=== PATIENT | female | born 1935 | race Caucasian/White ===

== ENCOUNTER → 2024-10-22 10:31 | Outpatient (REF) | payer MEDICARE, SELFPAY | LOC: HWRAD 10:31 | PROVIDERS: ATTENDING PHYSICIAN Family Medicine; FAMILY PHYSICIAN Family Medicine | DX: R60.0 Localized edema (principal) | CPT/HCPCS: 93970 ==

== ENCOUNTER → 2024-12-17 15:02 | Outpatient (REF) | payer MEDICARE, SELFPAY | LOC: HWRCS 15:02 | PROVIDERS: ATTENDING PHYSICIAN Physician Assistant Medical; FAMILY PHYSICIAN Family Medicine | DX: R60.0 Localized edema (principal); I25.10 Atherosclerotic heart disease of native coronary artery without angina pectoris; Z95.5 Presence of coronary angioplasty implant and graft | CPT/HCPCS: 93306 ==

== ENCOUNTER → 2024-12-25 12:29 | Outpatient (REF) | payer OTHER, SELFPAY | LOC: RAD 12:29 | PROVIDERS: ATTENDING PHYSICIAN Nurse Practitioner Family; FAMILY PHYSICIAN Family Medicine | DX: E83.52 Hypercalcemia (principal) | CPT/HCPCS: 76536 ==

== ENCOUNTER → 2025-02-06 12:19 | Outpatient (REF) | payer OTHER, SELFPAY ==
[2025-02-06 12:35] VITALS: BP 161/65; BP_SYST 58
== END ==
LOC: RADI 12:19
PROVIDERS: ATTENDING PHYSICIAN Nurse Practitioner Family; FAMILY PHYSICIAN Family Medicine
DX: E04.1 Nontoxic single thyroid nodule (principal)
CPT/HCPCS: 10005; 88173

== ENCOUNTER 2025-02-11 12:43 | Outpatient (REF) | payer OTHER, SELFPAY | END 2025-02-11 23:59 | disposition home or self-care (01) | LOC: WOUND 12:43 | PROVIDERS: ATTENDING PHYSICIAN Surgery; FAMILY PHYSICIAN Family Medicine | DX: L90.5 Scar conditions and fibrosis of skin (principal); C44.709 Unspecified malignant neoplasm of skin of left lower limb, including hip; I87.2 Venous insufficiency (chronic) (peripheral); I25.10 Atherosclerotic heart disease of native coronary artery without angina pectoris; Z95.5 Presence of coronary angioplasty implant and graft | CPT/HCPCS: 99203 ==

== ENCOUNTER 2025-02-15 11:50 | Emergency (ER) | payer OTHER, SELFPAY ==
[2025-02-15 12:04] VITALS: BP 166/75
--- NOTE | 2025-02-15 14:22 | ED.GENMED ---
History of Present Illness
General
Chief Complaint: Fall
Source: patient and family
Exam Limitations: none
Time Seen by Provider: 02/15/25 13:22
Nursing documentation reviewed up to this point in time: agreed with
History of Present Illness
History of Present Illness:
Patient is an 81-year-old female presents to the ER for evaluation . she fell in the bathroom and hit her left forehead on the tub on Tuesday. No loss of conscious no headache. Family is bringing her today for evaluation. Patient herself has
no complaints. She does have bruising to the left side of her head. She is not on blood thinners. Denies any other injuries. Denies any nausea and vomiting .
Phy Exam
General Physical Exam
General Presentation: no apparent distress
General age: appears stated age
General Skin: warm and dry
General Habitus: normal
General Mental: alert
General Hydration: appears well hydrated
ENT Exam
ENT Exam: EOMI and TM's normal
Eye Exam
Eye Exam: PERRL, EOMI and other (+ Ecchymosis to left lateral orbit no entrapment small Rodrigues bruising to left forehead)
Eye Exam General: PERRL: bilateral and EOM intact: bilateral
Pupil Exam: Bilateral: round and reactive
Neurological Exam
Neurological Exam: alert, oriented x3 and no motor deficits
Bindu Coma Scale
Eye Opening: Spontaneous
Verbal Response: Oriented
Motor Response: Obeys Commands
GCS Total Score: 15
Musculoskeletal Exam
Musculoskeletal Exam: full ROM and other ( + Ecchymosis to left lateral orbit; + small amt of ecchymosis to left forehead)
Skin Exam
Skin Exam: normal color and warm/dry
Psychiatric Exam
Psychiatric Exam: normal mood/affect
Course
Orders/Labs/Results
Orders:
Orders
02/15/25 12:10
CT Head W/o Iv Contrast Urgent
Comment:
Reason For Exam: fall
02/15/25 12:11
Cervical Spine wo Contrast CT [CT Cervical Spine W/o Iv Contr] Urgent
Comment:
Reason For Exam: fall
Vital Signs
Initial and Last Documented VS:
Initial Vital Signs
Temp Pulse Resp BP Pulse Ox
98.2 F 58 16 166/75 99
02/15/25 12:04 02/15/25 12:04 02/15/25 12:04 02/15/25 12:04 02/15/25 12:04
Last Documented Vital Signs
Temp Pulse Resp BP Pulse Ox
98.2 F 64 19 159/99 98
02/15/25 12:04 02/15/25 15:52 02/15/25 15:52 02/15/25 15:52 02/15/25 15:52
MDM/Problems Addressed
Differential Diagnosis Includes:
Not limited to intracranial hemorrhage, head injury contusion
MDM/Problems Addressed:
Patient fell in the bathtub on Tuesday and has bruising to the left side of her head. No loss of conscious. Patient is awake alert no acute distress she is not on blood thinners. CT head and cervical spine negative for acute findings. CT
cervical spine mentions thyroid nodule she is aware of this and has recently had this biopsied and is in the process of her workup. Patient is well-appearing stable for discharge home.
*Radiology
Radiology exam reviewed: radiology read reviewed
*Pulse Oximetry
SaO2: 99
Oxygen Mode of Delivery: Room air
Patient hypoxic: no
*Critical Care Note
Total Time (30-74mins, 75-104mins- exclusive of procedures): Not Applicable
ED Attending Note
-
Portions of this chart may have been created with voice recognition software.� Occasional wrong word or��sound alike� substitutions may have occurred due to the inherent limitations of voice recognition software.
Discharge Plan
Departure
Patient Disposition: Home (Routine Discharge)
Date of Disposition: 02/15/25
Time of Disposition: 16:41
Patient with high blood pressure during this ER visit?: Yes
Condition: Fair
Covid-19: Not Applicable
Discharge Problem:
Fall, Head injury
Instructions: Head Injury in Adults (DC), BLOOD PRESSURE
Prescriptions:
No Action
losartan 50 mg Tablet
100 mg PO DAILY
metoprolol succinate 50 mg Tablet Extended Release 24 Hr
75 mg PO DAILY
aspirin 81 mg Tablet,Delayed Release (Dr/Ec)
81 mg PO DAILY
Patient Comments:
per pt 'I may have taken it today- I'm not sure'
alprazolam 0.25 mg Tablet
0.25 mg PO TIDPRN PRN (Reason: anxiety)
atorvastatin 20 mg Tablet
20 mg PO DAILY 30 Days Qty: 30 0RF
furosemide 40 mg Tablet
40 mg PO DAILY
methimazole 5 mg Tablet
5 mg PO DAILY
Referrals:
UNKNOWN - PT NOT,INTERVIEWE [Family Provider]
Activity Restrictions/Additional Instructions:
As discussed CAT scans were negative For acute finding. Follow-up with your family doctor as needed .return if any worsening of symptoms.
Interventions
Interventions:
*Risk Screen - Suicide Last Done: 02/15/25 12:04
*General Assessment Last Done: 02/15/25 13:48
*Neglect/Abuse Screening Last Done: 02/15/25 12:04
*ED- Fall Risk Assessment Last Done: 02/15/25 13:48
*ED COVID-19 Vaccine History Last Done: 02/15/25 13:48
*ED Influenza Vaccine History Last Done: 02/15/25 13:48
ED-Musculoskeletal Assessment Last Done: 02/15/25 14:05
ED- Neurological Assessment Last Done: 02/15/25 14:05
ED-Skin Assessment Last Done: 02/15/25 14:05
Discharge Date and Time
Print Language: CROATIAN
[2025-02-15 15:52] VITALS: BP 159/99
== END 2025-02-15 16:59 | disposition home or self-care (01) ==
LOC: EMR 11:50
PROVIDERS: EMERGENCY PHYSICIAN Emergency Medicine
DX: S09.90XA Unspecified injury of head, initial encounter (principal); W18.2XXA Fall in (into) shower or empty bathtub, initial encounter; Y92.002 Bathroom of unspecified non-institutional (private) residence as the place of occurrence of the external cause; Y93.E1 Activity, personal bathing and showering
CPT/HCPCS: 99284; 70450; 72125